=== PATIENT | female | born 1970 | race Caucasian/White ===

== ENCOUNTER → 2016-05-28 | Outpatient (CLI) | payer OTHER | LOC: OD 09:44 | PROVIDERS: ATTEND Student in an Organized Health Care Education/Training Program | DX: M25.50 Pain in unspecified joint (principal) ==

== ENCOUNTER 2016-07-23 08:55 | Emergency (ER) | payer OTHER ==
[2016-07-23] MEDS ORDERED: IBUPROFEN 600 MG TABLET PO ONE (10:16)
--- NOTE | 2016-07-23 10:19 | ER Document Report ---
ED Headache - General Chief Complaint: Headache Stated Complaint: HEADACHE Time seen by provider: 10:17 Mode of Arrival: Ambulatory Information source: Patient TRAVEL OUTSIDE OF THE [place] IN LAST 30 DAYS: No - HPI Patient complains to provider of: Headache Onset: Last week Onset was: Gradual Timing: Worse Quality of pain: Achy, Fullness, Pressure Severity: Moderate Pain Level: 4 Associated symptoms: Nausea/vomiting, Photophobia Exacerbated by: Light Similar symptoms previously: Yes Recently seen / treated by doctor: No Notes: Patient is a 45-year-old female who presents to the emergency room complaining of headache 1 week, she reports a head injury on 07/11/2016, she was playing soccer and got elbowed, there was no loss of consciousness, no nausea or vomiting, no vision changes immediately, but over the past week she has developed all these symptoms, she has a history of headaches in the past but generally they resolve after taking ibuprofen her Goody powders, however this headache has not resolved, she reports photophobia, nausea, intense sharp head pain with pressure - Related Data Allergies/Adverse Reactions: No Known Allergies Allergy (Verified 07/23/16 09:03) Past Medical History - General Information source: Patient - Social History Smoking Status: Never Smoker Chew tobacco use (# tins/day): No Frequency of alcohol use: Rare Drug Abuse: None Family History: Reviewed & Not Pertinent Patient has suicidal ideation: No Patient has homicidal ideation: No Endocrine Medical History: Reports: Hx Hypothyroidism Renal/ Medical History: Denies: Hx Peritoneal Dialysis Psychiatric Medical History: Reports: Hx Attention Deficit Hyperactivity Disorder Surgical Hx: Negative - Immunizations Hx Diphtheria, Pertussis, Tetanus Vaccination: No Review of Systems - Review of Systems Constitutional: No symptoms reported EENT: No symptoms reported Cardiovascular: No symptoms reported Respiratory: No symptoms reported Gastrointestinal: Nausea Genitourinary: No symptoms reported Female Genitourinary: No symptoms reported Musculoskeletal: No symptoms reported Skin: No symptoms reported Hematologic/Lymphatic: No symptoms reported Neurological/Psychological: See HPI -: Yes All other systems reviewed and negative Physical Exam - Vital signs Interpretation: Normal - General General appearance: Appears well, Alert - HEENT Head: Normocephalic, Atraumatic Eyes: Normal Conjunctiva: Normal Extraocular movements intact: Yes Eyelashes: Normal Pupils: PERRL Ears: Normal External canal: Normal Tympanic membrane: Normal Sinus: Frontal Nasal: Normal Mouth/Lips: Normal Pharynx: Normal Neck: Normal - Respiratory Respiratory status: No respiratory distress Chest status: Nontender Breath sounds: Normal Chest palpation: Normal - Cardiovascular Rhythm: Regular Heart sounds: Normal auscultation Murmur: No - Abdominal Inspection: Normal Distension: No distension Bowel sounds: Normal Tenderness: Nontender Organomegaly: No organomegaly - Back Back: Normal, Nontender - Extremities General upper extremity: Normal inspection, Nontender, Normal color, Normal ROM , Normal temperature General lower extremity: Normal inspection, Nontender, Normal color, Normal ROM , Normal temperature, Normal weight bearing. No: Gary's sign - Neurological Neuro grossly intact: Yes Cognition: Normal Orientation: AAOx4 [place] Coma Scale Eye Opening: Spontaneous [place] Coma Scale Verbal: Oriented [place] Coma Scale Motor: Obeys Commands [place] Coma Scale Total: 15 Speech: Normal Motor strength normal: LUE, RUE, LLE, RLE Sensory: Normal - Psychological Associated symptoms: Normal affect, Normal mood - Skin Skin Temperature: Warm Skin Moisture: Dry Skin Color: Normal Course - Re-evaluation Re-evalutation: 07/23/16 10:52 Imaging results were discussed with patient which are unremarkable, patient was given a hydrocodone and Zofran dose pack to go, advised to follow-up with her primary care provider, rest, drink plenty fluids, return if symptoms worsen, patient acknowledges understanding and agreement with this plan - Diagnostic Test Radiology reviewed: Image reviewed, Reports reviewed Discharge - Discharge Clinical Impression: Headache Qualifiers: Headache type: unspecified Headache chronicity pattern: unspecified pattern Intractability: not intractable Qualified Code(s): R51 - Headache Condition: Stable Disposition: HOME, SELF-CARE Instructions: Antinausea Medication ([facility]), Headache ([facility]), Oral Narcotic Medication ([facility]), Concussion ([facility]), Post-Concussion Syndrome ([facility]) Additional Instructions: Drink plenty of fluids and get plenty of rest. Follow up with your primary care provider in one to 2 days. Return to the emergency room immediately if symptoms worsen or any additional concerns. Prescriptions: Hydrocodone/Acetaminophen [Hydrocodon-Acetaminophen 5-325] 1 each PO Q6 #20 tablet Ondansetron [Zofran Odt 4 mg Tablet] 1 - 2 tab PO Q4H #10 tab.rapdis Forms: Return to Work
[2016-07-23] MEDS ORDERED: HYDROCODONE/ACETAMINOPHEN 5-325 MG 6 TAB/DSPK PO PRN (10:51)
[2016-07-23] MEDS ORDERED: ONDANSETRON ODT 4 MG TAB (6 TAB/DSPK) PO PRN (10:51)
== END 2016-07-23 11:00 | disposition home or self-care (01) ==
LOC: ER 08:55
DX: R51 Headache (principal); R11.2 Nausea with vomiting, unspecified; H53.149 Visual discomfort, unspecified
CPT/HCPCS: 70450; 99284

== ENCOUNTER 2017-05-02 05:35 | Day surgery (SDC) | payer OTHER ==
[2017-04-22 11:52] LABS: APPEARANCE,URINE CLEAR; BILIRUBIN,URINE NEGATIVE (NEGATIVE); COLOR,URINE COLORLESS; GLUCOSE, URINE NEGATIVE (NEGATIVE); KETONES,URINE NEGATIVE (NEGATIVE); LEUKOCYTE ESTERASE,URINE NEGATIVE (NEGATIVE); NITRITE,URINE NEGATIVE (NEGATIVE); PROTEIN,URINE NEGATIVE (NEGATIVE); URINE SPECIFIC GRAVITY 1.001; UROBILINOGEN,URINE NEGATIVE mg/dL (<2.0)
[2017-04-22 13:15] LABS: HEMATOCRIT 41.3 % (36.0-47.0); HEMOGLOBIN 14.2 g/dL (12.0-15.5); MEAN CORPUSCULAR HEMOGLOBIN 30.3 pg (27.0-33.4); MEAN CORPUSCULAR HGB CONC 34.3 g/dL (32.0-36.0); MEAN CORPUSCULAR VOLUME 88 fl (80-97); PLATELET COUNT 304 10^3/uL (150-450); RED BLOOD COUNT 4.68 10^6/uL (3.72-5.28); RED CELL DISTRIBUTION WIDTH 13.2 % (11.5-14.0); WHITE BLOOD COUNT 5.7 10^3/uL (4.0-10.5)
[2017-04-22 13:40] LABS: ALANINE AMINOTRANSFERASE 32 U/L (9-52); ALBUMIN 4.4 g/dL (3.5-5.0); ALKALINE PHOSPHATASE 60 U/L (38-126); ANION GAP 11 (5-19); ASPARTATE AMINO TRANSFERASE 27 U/L (14-36); BILIRUBIN,DIRECT 0.2 mg/dL (0.0-0.4); BILIRUBIN,TOTAL 0.4 mg/dL (0.2-1.3); BLOOD UREA NITROGEN 10 mg/dL (7-20); CALCIUM 9.7 mg/dL (8.4-10.2); CARBON DIOXIDE 25 mmol/L (22-30); CHLORIDE 105 mmol/L (98-107); GLUCOSE 85 mg/dL (75-110); POTASSIUM 4.9 mmol/L (3.6-5.0); SODIUM 141.2 mmol/L (137-145); TOTAL PROTEIN 7.5 g/dL (6.3-8.2)
[~2017-05-02 05:35] MED LIST: LACTATED RINGERS 1000 ML IV PRN; LIDOCAINE 0.5% INJ-PF (5 MG/ML) 50 ML SDV SUBCUT PRN
[2017-05-02] MEDS ORDERED: MIDAZOLAM 2 MG/2 ML INJ ONE (06:53)
[2017-05-02] MEDS ORDERED: HYDROMORPHONE HCL INJ/PF 2 MG/ML AMPULE ONE (06:53)
[2017-05-02] MEDS ORDERED: FENTANYL CITRATE INJ/PF 100 MCG/2 ML AMPUL ONE (06:53)
[2017-05-02] MEDS ORDERED: EPHEDRINE SULFATE INJ 50 MG/1 ML AMPULE ONE (06:54)
[2017-05-02] MEDS ORDERED: DEXMEDETOMIDINE INJ 80 MCG/20 ML VIAL IV ONE (06:54)
[2017-05-02] MEDS ORDERED: PROPOFOL INJ 200 MG/20 ML VIAL IV ONE (06:54)
[2017-05-02] MEDS ORDERED: ACETAMINOPHEN 100 ML IV ONE (06:54)
[2017-05-02] MEDS: CEFAZOLIN 1 GM/D5W RTU 1 GM/50 ML RTUPB IV PRN ×2 (07:45→11:47)
[2017-05-02] MEDS ORDERED: MORPHINE SULFATE 10 MG/ML INJ IV PRN (08:51)
[2017-05-02] MEDS ORDERED: MEPERIDINE HCL/PF INJ 25 MG/1 ML DISP.SYRIN IV PRN (08:51)
[2017-05-02] MEDS ORDERED: ONDANSETRON HCL INJ/PF 4 MG/2 ML SDV IV PRN (08:51)
[2017-05-02] MEDS ORDERED: FENTANYL CITRATE INJ/PF 100 MCG/2 ML AMPUL IV PRN ×3 (08:51)
[2017-05-02] MEDS ORDERED: DIPHENHYDRAMINE HCL 50 MG/ML VIAL IV PRN (08:51)
[2017-05-02] MEDS ORDERED: PROMETHAZINE HCL INJ 25 MG/1 ML VIAL IV PRN ×2 (08:51)
--- NOTE | 2017-05-02 10:26 | Operative Report ---
Operative Report DATE OF SURGERY: 05/02/17 PREOPERATIVE DIAGNOSIS: Adenomyosis pelvic pain heavy menses POSTOPERATIVE DIAGNOSIS: Same OPERATION: Robotic hysterectomy and bilateral salpingo-oophorectomy SURGEON: LENORE RODGERS ANESTHESIA: GA TISSUE REMOVED OR ALTERED: Uterus tubes and ovaries COMPLICATIONS: None ESTIMATED BLOOD LOSS: 125 cc INTRAOPERATIVE FINDINGS: Normal female pelvis PROCEDURE: Patient was taken the OR and placed in supine position. General anesthesia was induced. She is placed in dorsolithotomy position using Noah stirrups. Her abdomen perineum and vagina were prepared and draped in sterile fashion. Next a catheter was placed in the bladder for drainage during the surgery. A speculum was placed in the anterior lip of the cervix was grasped and a suture was placed for retention of the V care uterine manipulator. The uterus was sounded to 8 cm. The V care uterine manipulator was placed and balloon inflated. Next an incision was made approximately 5 cm above the umbilicus. The fascia was grasped and incised with scissors entering the abdominal cavity. A blunt port was placed. Laparoscopy confirmed appropriate placement. The abdomen was insufflated with CO2 gas. The lateral ports were placed under laparoscopic visualization in the right lower quadrant port for the insufflation was placed under laparoscopic visualization. The robot was then brought to the table and docked. Monopolar sugey were placed on the right hand and bipolar cautery placed on the left hand. Next from the operating station the pelvis was inspected ureters were identified bilaterally. The infundibulopelvic pedicles were taken down using bipolar cautery and monopolar sugey. The round ligament was also incised bilaterally using bipolar cautery and monopolar sugey. The broad ligament was taken down using bipolar cautery monopolar sugey staying next to the uterus. The anterior leaf of the broad ligament was incised creating a bladder flap. The uterine arteries were identified and cauterized with bipolar cautery and taken down with monopolar sugey. The cardinal ligaments were then taken down at 3 and 9:00 using bipolar cautery monopolar sugey. Upon reaching the V care cup the incision around the vaginal mucosa was made directly next to the cervix. The uterus was removed through the vagina. The V lock suture was passed through the accessory port and the vaginal cuff was closed using the V lock suture. Closure was with a running V lock starting at the right vaginal cuff incorporating anterior vaginal Coso lateral vaginal sidewall posterior vaginal mucosa. The cuff was then closed incorporating anterior to posterior vaginal mucosa across the length of the cuff and then upon reaching the left side anterior vaginal mucosa lateral vaginal sidewall posterior vaginal mucosa. Several sutures were then placed medially in the stitch was cut. The pelvis was irrigated and suctioned free of fluid and blood. All pedicles were inspected and found to be hemostatic. The robot was undocked from the patient. The laparoscopic ports were removed under visualization. The gas was allowed to escape from the abdomen and the umbilical port and scope were removed at the same time. The fascia at the umbilicus was closed with a 2-0 Vicryl suture. The skin at all 4 sites was closed with 4-0 undyed Vicryl suture. Patient was extubated in the OR and taken recovery room in stable condition. End of dictation
[2017-05-02] MEDS ORDERED: ONDANSETRON 4 MG TAB.RAPDIS PO PRN (10:36)
[2017-05-02] MEDS ORDERED: HYDROMORPHONE HCL INJ/PF 2 MG/ML AMPULE IV PRN (10:36)
[2017-05-02] MEDS ORDERED: OXYCODONE-ACETAMINOPHEN 5-325 MG TABLET PO PRN ×2 (10:37→10:38)
[2017-05-02] MEDS ORDERED: RINGERS SOLUTION,LACTATED 1,000 ML IV PRN (10:38)
[2017-05-02] MEDS ORDERED: ROCURONIUM BROMIDE INJ 50 MG/5 ML VIAL IV ONE (11:54)
[2017-05-02] MEDS ORDERED: KETOROLAC TROMETHAMINE 60 MG/2 ML SDV ONE (11:54)
[2017-05-02] MEDS ORDERED: METOCLOPRAMIDE HCL INJ/PF 10 MG/2 ML SDV ONE (11:54)
[2017-05-02] MEDS ORDERED: GLYCOPYRROLATE INJ 0.4 MG/2 ML VIAL ONE (11:54)
[2017-05-02] MEDS ORDERED: SUCCINYLCHOLINE CHLORIDE INJ 200 MG/10 ML VIAL ONE (11:54)
[2017-05-02] MEDS ORDERED: ONDANSETRON HCL INJ/PF 4 MG/2 ML SDV ONE (11:54)
[2017-05-02] MEDS ORDERED: NEOSTIGMINE METHYLSULFATE 10 MG/10 ML VIAL ONE (11:54)
[2017-05-02] MEDS ORDERED: DEXAMETHASONE SOD PHOSPHATE INJ 4 MG/1 ML VIAL ONE (11:54)
[2017-05-02] MEDS ORDERED: LIDOCAINE 2% INJ-PF (20 MG/ML) 2 ML AMPUL ONE (11:54)
[2017-05-02 15:50] LABS: HEMATOCRIT 38.5 % (36.0-47.0); HEMOGLOBIN 12.7 g/dL (12.0-15.5); MEAN CORPUSCULAR HEMOGLOBIN 29.3 pg (27.0-33.4); MEAN CORPUSCULAR HGB CONC 32.9 g/dL (32.0-36.0); MEAN CORPUSCULAR VOLUME 89 fl (80-97); PLATELET COUNT 205 10^3/uL (150-450); RED BLOOD COUNT 4.32 10^6/uL (3.72-5.28); RED CELL DISTRIBUTION WIDTH 13.3 % (11.5-14.0); WHITE BLOOD COUNT 11.9 10^3/uL (4.0-10.5)
[2017-05-02 16:03] LABS: ANION GAP 8 (5-19); BLOOD UREA NITROGEN 13 mg/dL (7-20); CALCIUM 8.7 mg/dL (8.4-10.2); CARBON DIOXIDE 28 mmol/L (22-30); CHLORIDE 101 mmol/L (98-107); GLUCOSE 128 mg/dL (75-110); POTASSIUM 4.4 mmol/L (3.6-5.0); SODIUM 137.1 mmol/L (137-145)
--- NOTE | 2017-05-02 16:42 | PDOC PROGRESS REPORT ---
Subjective Progress Note for:: 05/02/17 Subjective:: She is resting. Reason For Visit: N92.1 EXCESSIVE AND FREQUENT MENSTRUATION Physical Exam - Physical Exam Vital Signs: Temp Pulse Resp BP Pulse Ox 97.6 F 84 16 123/75 99 05/02/17 15:35 05/02/17 15:35 05/02/17 15:35 05/02/17 15:35 05/02/17 15:35 Intake & Output 05/01/17 05/02/17 05/03/17 06:59 06:59 06:59 Intake Total 0 2740 Output Total 830 Balance 0 1910 Weight 70 kg General appearance: PRESENT: no acute distress, well-developed, well-nourished Result Laboratory Results: 05/02/17 15:30 05/02/17 15:30 05/02/17 05/02/17 15:30 15:30 WBC 11.9 H RBC 4.32 Hgb 12.7 Hct 38.5 MCV 89 MCH 29.3 MCHC 32.9 RDW 13.3 Plt Count 205 Sodium 137.1 Potassium 4.4 Chloride 101 Carbon Dioxide 28 Anion Gap 8 BUN 13 Creatinine 0.63 Est GFR ( Amer) > 60 Est GFR (Non-Af Amer) > 60 Glucose 128 H Calcium 8.7 Impressions: Doing well post op. Assessment & Plan - Diagnosis (1) Menorrhagia Is this a current diagnosis for this admission?: Yes (2) Adenomyosis Is this a current diagnosis for this admission?: Yes - Time Time Spent with patient: 15-24 minutes Medications reviewed and adjusted accordingly: Yes Anticipated discharge: Home Within: within 24 hours Disposition: Home in the am
[2017-05-02] MEDS ORDERED: IBUPROFEN 800 MG TABLET PO SCH (18:00)
[2017-05-02 19:08] VITALS: BP 111/80
[2017-05-03] MEDS ORDERED: (PENDING PHARMACY ID) (Levothyroxine Sodium [Levothyroxine Sodium] 125 MCG) PO SCH (10:00)
[2017-05-03] MEDS ORDERED: LISDEXAMFETAMINE DIMESYLATE 30 MG PO SCH (10:00)
[2017-05-03] MEDS ORDERED: LEVOTHYROXINE SODIUM 0.025 MG TABLET PO SCH (10:00)
[2017-05-03] MEDS ORDERED: LEVOTHYROXINE SODIUM 0.1 MG TABLET PO SCH (10:00)
--- NOTE | 2017-05-06 13:51 | PDOC DISCHARGE SUMMARY ---
General - Admit/Disc Date/PCP Admission Date/Primary Care Provider: TERRENCE TALLEY, The patient was admitted for a hysterectomy for heavy menses and adenomyosis. Discharge Date: 05/02/17 - Discharge Diagnosis (1) Menorrhagia Is this a current diagnosis for this admission?: Yes (2) Adenomyosis Is this a current diagnosis for this admission?: Yes - Additional Information Discharge Diet: As Tolerated Discharge Activity: Activity As Tolerated, Balance Activity w/Rest, No Lifting Over 10 Pounds, No Lifting/Push/Pulling, No tub bath Home Medications: Levothyroxine Sodium 125 mcg PO DAILY 05/03/13 Lisdexamfetamine Dimesylate [Vyvanse] 30 mg PO DAILY 05/03/13 Valacyclovir HCl [Valacyclovir] 500 mg PO 04/22/17 History of Present Illness History of Present Illness: TORY BALLARD is a 46 year old female She was admitted for a robotic hysterectomy and BSO. Please see the operative note. Hospital Course Hospital Course: Post op she did well and her pain was controlled with percocet. She was able to void and ambulate and wished to go home that evening. Physical Exam - Physical Exam Vital Signs: Temp Pulse Resp BP Pulse Ox 97.6 F 84 16 111/80 99 05/02/17 19:00 05/02/17 19:00 05/02/17 19:00 05/02/17 19:00 05/02/17 19:00 General appearance: PRESENT: no acute distress - abdomen was soft with expected incisional tenderness., well-developed, well-nourished Result Laboratory Results: 05/02/17 15:30 05/02/17 15:30 Impressions: Doing well post op and ready to go home. Rx for percocet and premarin written. Plan Discharge Plan: Home to rest with followup next week. Pelvic rest and regular diet. Premarin and percocet written. Time Spent: Greater than 30 Minutes
== END 2017-05-02 19:40 | disposition home or self-care (01) ==
LOC: OROUT 05:35 → 2S 11:27 → OROUT 19:40
PROVIDERS: ATTEND Obstetrics & Gynecology
PROC: 0UT24ZZ Resection of Bilateral Ovaries, Percutaneous Endoscopic Approach (ICD-10-PCS; 2017-05-02)
PROC: 0UT74ZZ Resection of Bilateral Fallopian Tubes, Percutaneous Endoscopic Approach (ICD-10-PCS; 2017-05-02)
PROC: 8E0W4CZ Robotic Assisted Procedure of Trunk Region, Percutaneous Endoscopic Approach (ICD-10-PCS; 2017-05-02)
PROC: 0UT94ZZ Resection of Uterus, Percutaneous Endoscopic Approach (ICD-10-PCS; principal; 2017-05-02 07:30)
DX: N92.1 Excessive and frequent menstruation with irregular cycle (principal); N72 Inflammatory disease of cervix uteri; N80.0 Endometriosis of uterus; R10.2 Pelvic and perineal pain; N83.8 Other noninflammatory disorders of ovary, fallopian tube and broad ligament; E03.9 Hypothyroidism, unspecified; Z79.899 Other long term (current) drug therapy
CPT/HCPCS: 86900; 86901; 36415 ×3; 86850; 85027 ×2; 81025; 80048; 80053; 81001; 88307 ×2; 58571; J2250; J0690; J3490 ×3; J1100; J1885; J3010; J2765; J0330; J2405; J2704; J0131; S2900; 840; J1170